=== PATIENT | male | born 1980 | race Caucasian/White ===

== ENCOUNTER 2021-03-02 18:06 | Emergency (ER) | payer MEDICAID ==
[~2021-03-02] VITALS: Ht 175.3 cm; Wt 67.8 kg
--- NOTE | 2021-03-02 18:49 | NUR ---
PT TO ROOM 7 VIA WHEELCHAIR AND C/O PAIN TO RIGHT CALVE
--- NOTE | 2021-03-02 19:11 | NUR ---
PT TO US AT THIS TIME
--- NOTE | 2021-03-02 19:40 | NUR ---
PT BACK FROM ULTRASOUND. TO ROOM. MD TO BEDSIDE TO EVAL PT. LAB ORDERS RECEIVED, AND PIV TO LEFT AC STARTED WITH 18G X1 ATTEMPT. PT TOLERATED WELL. BLOOD DRAWN AND SENT TO LAB. PT ON FULL CR MONITOR, AND O2 SAT PROBE. PTS O2 SAT WAS 88% ON RA AND PLACED ON O2 NC 2 LPM FOR COMFORT AND OXYGENATION. MD MADE AWARE AND CTA ORDERED.
[2021-03-02 20:25] LABS: BASOPHILS % (AUTO) 1 % (0-1); EOSINOPHILS % (AUTO) 3 % (1-7); LYMPHOCYTES % (AUTO) 25 % (22-44); MEAN CORPUSCULAR HEMOGLOBIN 32.8 pg (27.5-34.5); MEAN CORPUSCULAR HGB CONC 34.3 g/dL (33.2-36.2); MONOCYTES % (AUTO) 12 % (2-9); NEUTROPHILS % (AUTO) 59 % (42-75); PLATELET COUNT 131 x10^3/uL (130-400); RED BLOOD COUNT 4.43 x10^6/uL (4.38-5.82); RED CELL DISTRIBUTION WIDTH 13.5 % (9.4-14.8)
[2021-03-02 20:27] LABS: MD NO
[2021-03-02 20:35] LABS: ALBUMIN 3.1 g/dL (3.4-5.0); ANION GAP 6 mmol/L (5-15); CALCIUM 8.4 mg/dL (8.5-10.1); CHLORIDE 106 mmol/L (98-107); CREATININE 0.78 mg/dL (0.7-1.3)
[2021-03-02 20:36] LABS: INTERNATIONAL NORMALIZED RATIO 0.93 (0.93-1.1)
--- NOTE | 2021-03-02 20:46 | NUR ---
PT A&OX4, AND TAKEN TO CT SCAN BY TECH VIA WHEELCHAIR. PT AIRWAY INTACT, GOOD AERATION AND OXYGENATION. O2 SATS 88% ON ROOM AIR, AND PT REMAINS ON 2LPM NC.
[2021-03-02] MEDS ORDERED: OMNIPAQUE 350 MG/ML, 75ML BOTTLE ONE (20:56)
[2021-03-02] MEDS ORDERED: RIVAROXABAN 15 MG TABLET PO ONE (21:30)
--- NOTE | 2021-03-02 22:00 | NUR ---
MD AT BEDSIDE TO EVAL AND UPDATE THE PT. MEDS FROM PHARMACY ADMINISTERED AND PT TOLERATED WELL. PT TO BE DISCHARGED.
--- NOTE | 2021-03-02 22:14 | NUR ---
MEDS ADMINISTERED, AND PT TOLERATED WELL. F/U AND D/C INSTRUCTIONS GIVEN TO PT WITH PAPERWORK FOR HIS FIRST MONTHS XARELTO DOSING. PRESCRIPTIONS GIVEN TO PT AND HE V/U. PIV D/C'D FROM LEFT AC AND CATH TIP INTACT.
[2021-03-02 22:15] VITALS: BP 104/64
== END 2021-03-02 22:18 | disposition home or self-care (01) ==
LOC: ED 18:36
DX: I82.411 Acute embolism and thrombosis of right femoral vein (principal); I82.431 Acute embolism and thrombosis of right popliteal vein; I82.441 Acute embolism and thrombosis of right tibial vein; F17.210 Nicotine dependence, cigarettes, uncomplicated
CPT/HCPCS: 36415; 71275; 80048; 82040; 85025; 85610; 85730; 93971; 99285; 99406; Q9967